=== PATIENT | male | born 1945 | race American Indian/Alaskan Native ===

== ENCOUNTER 2017-12-09 05:26 | Observation (INO) | payer MEDICARE ==
[2017-12-09 05:38] VITALS: BMI 28.0
--- NOTE | 2017-12-09 05:45 | ED PDOC ---
Arrival/HPI - General Historian: Patient - History of Present Illness Time/Duration: 1-3 hours Symptom Onset: Sudden Symptom Course: Unchanged - General Time Seen by Provider: 12/09/17 05:27 - History of Present Illness Narrative History of Present Illness (Text): 12/09/17 05:53 Patient is a 72 year old male with newly diagnosed hypertension and diabetes presenting to the ED with lip swelling. Patient states that he was just started on metformin and lisinopril on Sunday by his primary care doctor, Dr. Forte. He woke up in this morning and noticed that his upper and lower left lip was swollen. He states that he does not have trouble breathing, swallowing food, or drinking liquid. Patient denies tongue swelling, shortness of breath, fevers, chills, chest pain, abdominal pain, or urinary symptoms. (Aman uGnter) Past Medical History - Provider Review Nursing Documentation Reviewed: Yes - Travel History Have you recently traveled outside [place] w/in the past 3 mons?: No - Past History Past History: Non-Contributing Family/Social History - Physician Review Nursing Documentation Reviewed: Yes Family/Social History: No Known Family HX Smoking Status: Never Smoked Hx Alcohol Use: Yes Frequency of alcohol use: Socially Hx Substance Use: No Allergies/Home Meds Allergies/Adverse Reactions: Allergies No Known Allergies Allergy (Verified 12/09/17 05:37) Home Medications: Home Meds Medication Instructions Recorded Confirmed Lisinopril [Zestril] 10 mg PO DAILY 12/09/17 12/09/17 MetFORMIN [glucOPHAGE] 1,000 mg PO BID 12/09/17 12/09/17 Review of Systems - Physician Review All systems were reviewed & negative as marked: Yes - Review of Systems Constitutional: Normal. absent: Fevers, Night Sweats Eyes: Normal ENT: Other (Lip swelling). absent: Normal Respiratory: Normal. absent: SOB, Wheezing Cardiovascular: Normal. absent: Chest Pain Gastrointestinal: Normal. absent: Abdominal Pain, Constipation, Diarrhea, Nausea, Vomiting Genitourinary Male: Normal. absent: Dysuria, Frequency, Hematuria Musculoskeletal: Normal Skin: Normal. absent: Rash Neurological: Normal. absent: Headache, Dizziness Psychiatric: Normal. absent: Anxiety, Depression Physical Exam - Systems Exam Head: Present: Atraumatic, Normocephalic Pupils: Present: PERRL Extroacular Muscles: Present: EOMI Conjunctiva: Present: Normal Mouth: Present: Moist Mucous Membranes, Normal Tounge. No: Normal Lips ( Swelling of left upper and lower lip) Pharnyx: Present: Normal. No: ERYTHEMA, EXUDATE Respiratory/Chest: Present: Clear to Auscultation. No: Respiratory Distress, Accessory Muscle Use, Wheezes, Rales, Rhonchi Cardiovascular: Present: Regular Rate and Rhythm, Normal S1, S2. No: Murmurs, Rub, Gallop Abdomen: Present: Normal Bowel Sounds. No: Tenderness, Distention, Peritoneal Signs Upper Extremity: Present: Normal Inspection. No: Cyanosis, Edema Lower Extremity: Present: Normal Inspection. No: Edema Neurological: Present: GCS=15, CN II-XII Intact, Speech Normal Skin: Present: Warm, Dry, Normal Color. No: Rashes Psychiatric: Present: Alert, Oriented x 3, Normal Insight, Normal Concentration Vital Signs Temp Pulse Resp BP Pulse Ox 12/09/17 08:42 98.3 F 78 18 99 12/09/17 08:37 98.3 F 12/09/17 07:13 75 18 145/74 98 12/09/17 05:38 98.5 F 82 19 149/88 100 Medical Decision Making ED Course and Treatment: 12/09/17 05:28 Impression: Patient is a 72 year old male presenting with lip swelling. Differential Diagnosis included but are not limited to: - Angioedema - Allergic reaction Plan: -- Admit patient for observation -- Benadryl Progress Notes: 12/09/17 06:05 - Patient examined, patient agrees to be admitted for observation. 12/09/17 06:18 - Ordered Benadryl 12/09/17 06:50 - Swelling is better after given benadryl. (Aman Gunter) Case discussed with hospital medical assistant who will endorse patient to AM hospitalist. Admitted to Dr. Ponce. (Kassidy Jules) - Medication Orders Current Medication Orders: Albuterol/Ipratropium (Duoneb 3 Mg/0.5 Mg (3 Ml) Ud) 3 ml IH [id number] ROSE Last Admin: 12/09/17 13:35 Dose: 3 ml Amlodipine Besylate (Norvasc) 10 mg PO DAILY ROSE Famotidine (Pepcid) 40 mg PO HS ROSE Insulin Human Regular (Humulin R Low) 0 units SC ACHS [facility] PRN Reason: Protocol Last Admin: 12/09/17 16:53 Dose: 2 units MAR Blood Glucose Document 12/09/17 16:53 DLL (Rec: 12/09/17 16:55 DLL [id number]) Blood Glucose Finger Stick Blood Glucose (70-120) 228 Subcutaneous Administrations Document 12/09/17 16:53 DLL (Rec: 12/09/17 16:55 DLL [id number]) Injection Site MAR Injection Site Left Arm Charges for Administration # of Subcutaneous Administrations 1 Loratadine (Claritin) 10 mg PO DAILY [facility] Last Admin: 12/09/17 10:44 Dose: 10 mg Metformin HCl (Glucophage) 1,000 mg PO BID [facility] Last Admin: 12/09/17 17:17 Dose: Methylprednisolone (Solu-Medrol) 40 mg IVP Q12 [facility] Last Admin: 12/09/17 10:44 Dose: 40 mg IVP Administration Document 12/09/17 10:44 DLL (Rec: 12/09/17 10:45 DLL [id number]) Charges for Administration # of IVP Administrations 1 Montelukast Sodium (Singulair) 10 mg PO DAILY [facility] Last Admin: 12/09/17 10:44 Dose: 10 mg Discontinued Medications Diphenhydramine HCl (Benadryl) 25 mg PO STAT STA Stop: 12/09/17 06:12 Last Admin: 12/09/17 06:23 Dose: 25 mg Disposition/Present on Arrival - Present on Arrival Any Indicators Present on Arrival: No History of DVT/PE: No History of Uncontrolled Diabetes: No Urinary Catheter: No History of Decub. Ulcer: No - Disposition Have Diagnosis and Disposition been Completed?: Yes Disposition Time: 06:51 Patient Plan: Admission - Disposition Diagnosis: Angioedema Disposition: HOSPITALIZED Patient Problems: Current Active Problems Problem Status Onset Angioedema Acute Condition: STABLE
[2017-12-09] MEDS ORDERED: DiphenhydrAMINE 12.5 mg/5 ml LIQ UD (5 ml) PO STA (06:11)
[2017-12-09] MEDS ORDERED: MethylPREDNISolone 40 mg Vial IVP SCH (10:00)
[2017-12-09] MEDS: MethylPREDNISolone 40 mg Vial IVP SCH ×2 (10:44→21:25)
[2017-12-09] MEDS ORDERED: Insulin Lispro (humaLOG) MEDIUM Coverage SC SCH (11:30)
[2017-12-09] MEDS: Insulin Reg-LOW-Coverage SC SCH ×3 (11:54→22:11)
[2017-12-09] MEDS: Albuterol-Ipratrop 3 mg / 0.5 (3 ml) UD IH SCH ×2 (13:35→19:35)
[2017-12-09 23:16] VITALS: RESP 20
--- NOTE | 2017-12-10 05:14 | CON ---
Copied To: Ricky Amor MD Attending MD: Ricky Amor MD DATE: 12/09/2017 REASON FOR CONSULTATION: Leg swelling, mild shortness of breath, admitted with MICHELLE inhibitors reaction. HISTORY OF PRESENT ILLNESS: This is a 72-year-old gentleman with past medical history significant for hypertension, diabetes, who recently seen a new primary care physician, found to have a hypertension, was started on MICHELLE inhibitors, last dose was taken yesterday morning, comes in this morning with some shortness of breath, leg swelling, admitted with diagnosis of angioedema secondary to MICHELLE inhibitors, presently lying in the bed, already get Benadryl, Singulair, antihistamine and steroids and feel little bit better. Does not feel like closing of the throat or shortness of breath or chest pain at the present time. PAST MEDICAL HISTORY: Hypertension and diabetes. FAMILY HISTORY: No significant cardiopulmonary disease reported. SOCIAL HISTORY: Never smoked. Denies any alcohol abuse. ALLERGIES: I GUESS TO MICHELLE INHIBITORS. MEDICATIONS: He was on Zestril as an outpatient, placed on Claritin 10 mg daily, DuoNeb every 6 hours, metformin 1000 mg twice a day, Pepcid 40 mg at bedtime, Singulair 10 mg daily, Solu-Medrol 40 mg every 12 hours. REVIEW OF SYSTEMS: No headache, no rhinitis. Has a swollen especially upper lip and denying tongue swollen, mild short of breath. No chest pain. No nausea, vomiting, diarrhea, leg pain or leg swelling. PHYSICAL EXAMINATION: GENERAL: Lying in the bed in no acute distress. VITAL SIGNS: Temperature is 98, heart rate 64, respiratory rate is 18, blood pressure 155/88, pulse ox 98% on room air. HEENT: Moist mucous membrane. Crowded airway, swollen upper lips. No stridor. LUNGS: Have a fair airflow. No rhonchi. HEART: S1, S2. ABDOMEN: Soft, nontender. No organomegaly. EXTREMITIES: No edema. NEUROLOGIC: Awake, alert, follows simple commands. LABORATORY DATA: Shows glucose is 170. IMPRESSION AND PLAN: Angioedema secondary to lisinopril. Has hypertension and diabetes. Case discussed with Dr. Ponce. Spoke to nursing staff. We will continue close monitor. Continue antihistamine, leukotriene inhibitor, steroids. We will add Norvasc 10 mg daily to control the blood pressure. Gastric prophylaxis, deep venous thrombosis prophylaxis. Continue close monitoring in the fear of respiratory embarrassment Thank you and we will follow with you. Ricky Amor MD
[2017-12-10 07:20] LABS: HEMOGLOBIN 13.1 g/dL (14.0-18.0); MEAN CELL VOLUME 82.5 fl (80.0-105.0); MEAN CORPUSCULAR HGB CONC 33.9 g/dl (31.0-37.0); MEAN PLATELET VOLUME 10.4 fl (7.0-11.0); RBC 4.68 10^6/uL (3.5-6.1); RED CELL DISTRIBUTION WIDTH 12.7 % (11.5-14.5); WHITE BLOOD COUNT 4.8 10^3/ul (4.5-11.0)
[2017-12-10] MEDS: Albuterol-Ipratrop 3 mg / 0.5 (3 ml) UD IH SCH ×3 (07:38→19:47)
[2017-12-10 07:45] LABS: CALCIUM 9.5 mg/dL (8.4-10.5)
--- NOTE | 2017-12-10 08:01 | HP ---
Copied To: Irene Ponce MD Attending MD: Irene Ponce MD The patient is a 72-year-old male. CHIEF COMPLAINT: Lip swelling. HISTORY OF PRESENT ILLNESS: Mr. Keith Rodriguez is a 72-year-old male with newly diagnosed hypertension and diabetes. He went to the Emergency Room Department with swelling of the lips. Patient states that he was just started on metformin and lisinopril on Sunday by his primary care doctor, He woke up this morning and noticed that his upper and lower lips were swollen. He states that he does not have trouble with breathing, swallowing food or drinking liquid. no Chest pain . Patient denies tongue swelling, shortness of breath, fever, chills. No nausea or vomiting. No hematuria or hematochezia. PAST MEDICAL HISTORY: Hypertension, diabetes mellitus. FAMILY HISTORY: Father and mother noncontributory. SOCIAL HISTORY: No smoking. Never alcohol yet. Substance abuse, never. ALLERGIES: PATIENT IS NOT ALLERGIC WITH ANY MEDICATIONS. HOME MEDICATIONS: Zestril, metformin. REVIEW OF SYSTEMS: The patient was seen in the emergency room. was sitting on the bedside also. Still having the swollen lips, was sleepy after Benadryl. No wheezing. No chest pain. No headache. No dizziness. No fever. No chills. No hematuria. No hematochezia. PHYSICAL EXAMINATION: VITAL SIGNS: Temperature 98.3, pulse 78, respiratory rate 18, blood pressure 145/74, pulse oximetry 98%. HEENT: Head: Normocephalic, atraumatic. Eyes: PERRLA. Extraocular muscles are intact. Conjunctivae are clear. Nose is patent. Mucous membranes moist. Mouth moist. Swelling of the upper lip and lower lip. NECK: Supple. CHEST: Clear to auscultation. HEART: S1, S2 positive. LUNGS: Clear to auscultation. ABDOMEN: Soft. Bowel sounds present. No organomegaly. EXTREMITIES: No edema. No cyanosis. NEUROLOGIC: The patient is awake and alert. Moving all 4 extremities. No focal deficit. LABORATORY DATA: Glucose 170, 228. ASSESSMENT AND PLAN: Mr. Keith Rodriguez is a 72-year-old male came with angioedema, history of hypertension, diabetes mellitus, Benadryl given in the emergency room and I started the patient on Claritin, DuoNeb, metformin, insulin coverage, amlodipine, famotidine, Singulair, methylprednisolone. Patient passed the swelling test then food was given. Pulmonary consult called to make sure that patient will not get shortness of breath. Repeat lab. We will follow up. Irene Ponce MD MTDD
[2017-12-10 08:02] LABS: TOTAL IRON BINDING CAPACITY 352 ug/dL (261-462)
[2017-12-10] MEDS: Insulin Reg-LOW-Coverage SC SCH ×3 (08:30→17:08)
[2017-12-10 08:38] LABS: IRON 108 ug/dL (45-180)
[2017-12-10] MEDS: MethylPREDNISolone 40 mg Vial IVP SCH (09:51)
[2017-12-10] MEDS ORDERED: MethylPREDNISolone 40 mg Vial IVP SCH ×2 (10:00→22:00)
[2017-12-10 10:51] LABS: % IRON SATURATION 31 % (20-55)
[2017-12-10 12:01] LABS: FOLATE 8.8 ng/mL
--- NOTE | 2017-12-10 21:32 | PN ---
Copied To: Ricky Amor MD Attending MD: Ricky Amor MD DATE: 12/10/2017 PULMONARY PROGRESS NOTE REFERRING PHYSICIAN: Irene Ponce MD. SUBJECTIVE: He is sitting side of the bed. Family is at bedside. Night was unremarkable. Feels better. Decreased leg swelling. No shortness of breath today. No chest pain. No nausea. No vomiting, diarrhea, leg pain or leg swelling. OBJECTIVE: GENERAL: In no acute distress. VITAL SIGNS: Temperature is 98, heart rate is 86, respiratory rate is 20, blood pressure 180/80, pulse ox 99% room air. HEENT: Moist mucous membrane. Crowded airway. Mallampati score is 4. NECK: Supple. No JVD. Leg swelling is better. LUNGS: Have fair airflow with rhonchi. HEART: S1 and S2. ABDOMEN: Soft, nontender, no organomegaly. EXTREMITIES: No edema. NEUROLOGIC: Awake and alert, follows simple command. MEDICATIONS He is on Claritin 10 mg daily, DuoNeb every 6 hours, metformin 1000 mg twice a day, insulin coverage, hydrochlorothiazide 25 mg daily, Norvasc 10 mg daily, Pepcid 40 mg daily, Singulair 10 mg daily, Solu-Medrol 20 mg every 12 hours. LABORATORY DATA: Shows hemoglobin 13.1, hematocrit 38.6, WBC 4.8, platelet count is 213. Blood sugar 226. Iron 108, TIBC 352. TSH 0.45. Sodium 138, potassium 5.5, chloride 104, bicarbonate 21, BUN 38, creatinine 1.6, glucose 217. LDH 140. Folate 8.8. Vitamin B12 444. IMPRESSION AND PLAN: Resolving angioedema, probably secondary to MICHELLE inhibitors; hypertension; diabetes; mild renal insufficiency. Case discussed Dr. Ponce. Spoke to the patient and the patient's family at bedside. All the questions answered. We will place him on IV fluid half-normal saline 70 mL per hour. Cardiology consult was called. Gastric prophylaxis, deep vein thrombosis prophylaxis. Thank you and we will follow with you. Ricky Amor MD [facility] # [id number]
--- NOTE | 2017-12-10 22:57 | PN ---
Copied To: Irene Ponce MD Attending MD: Irene Ponce MD DATE: 12/10/2017 SUBJECTIVE: Patient is a 72-year-old male. Patient is seen and examined on the bedside, looking comfortable. No nausea, vomiting, or diarrhea. No hematuria or hematochezia. No swelling of the leg. No chest pain. No palpitation. Swelling of the lips was getting better. No headache. No dizziness. No fever. No chills. PHYSICAL EXAMINATION: VITAL SIGNS: Temperature 97.5, pulse 86, blood pressure 180/83, respiratory rate 20. HEENT: Head: Normocephalic, atraumatic. Eyes: PERRLA. Extraocular muscles are intact. Conjunctivae are clear. Nose is patent. Mucous membranes moist. NECK: Supple. No carotid bruit. No JVD or thyromegaly. CHEST: Bilaterally symmetrical. HEART: S1 and S2 positive. LUNGS: Clear to auscultation. ABDOMEN: Soft. Bowel sounds present. No organomegaly. EXTREMITIES: No edema. No cyanosis. NEUROLOGIC: Patient is awake and alert. Moving all 4 extremities. No focal deficit. MEDICATIONS: Claritin, albuterol, insulin, hydrochlorothiazide, Lopressor, amlodipine, Pepcid, Singulair. LABORATORY DATA: White blood cells 4.8, hemoglobin 13.1, hematocrit 38.6, platelets 213. Sodium 138, potassium 5.5 and repeat is 4.7, BUN 38, creatinine 1.2, glucose 230. Hemoglobin A1c is 10.5. LDL 140. ASSESSMENT AND PLAN: Mr. Keith Rodriguez is a 72-year-old male with anemia; hyperkalemia, replaced, it is normal; renal insufficiency; uncontrolled diabetes mellitus, hemoglobin A1c is 10.5; hypercholesterolemia; hypothyroidism; came with angioedema, discontinue enalapril. Discussion done with Dr. Amor and patient's nursing staff. Continue antihistamine and leukotriene inhibitors because patient's blood pressure going up, blood sugar is uncontrolled, discussion done with Dr. Amor and stop steroids. Continue Norvasc. Today, I added hydrochlorothiazide, but still blood pressure was high. Now, I added metoprolol tartrate 25 twice a day, one dose now. Cardiology consult called with the patient. Gastrointestinal and deep venous thrombosis prophylaxes. Repeat labs. We will follow up. Irene Ponce MD ISIA[facility]
[2017-12-11] MEDS: Insulin Reg-LOW-Coverage SC SCH ×3 (01:07→11:51)
[2017-12-11] MEDS: Albuterol-Ipratrop 3 mg / 0.5 (3 ml) UD IH SCH ×4 (02:00→13:14)
[2017-12-11 06:45] VITALS: TEMP 97.6; O2SAT 98
[2017-12-11 07:27] LABS: HEMOGLOBIN 12.2 g/dL (14.0-18.0); MEAN CELL VOLUME 82.6 fl (80.0-105.0); MEAN CORPUSCULAR HEMOGLOBIN 27.9 pg (25.0-35.0); MEAN CORPUSCULAR HGB CONC 33.7 g/dl (31.0-37.0); MEAN PLATELET VOLUME 9.9 fl (7.0-11.0); RBC 4.38 10^6/uL (3.5-6.1); RED CELL DISTRIBUTION WIDTH 12.9 % (11.5-14.5); WHITE BLOOD COUNT 10.1 10^3/ul (4.5-11.0)
[2017-12-11 07:48] LABS: ALB/GLOB RATIO 1.2 (1.1-1.8); ALBUMIN 3.9 g/dL (3.0-4.8); CALCIUM 9.5 mg/dL (8.4-10.5)
[2017-12-11] MEDS ORDERED: Sod Polystyrene Sulf 15 gm/60 ml Susp PO ONE (10:30)
[2017-12-11] MEDS ORDERED: GlipiZIDE 10 mg SR Tab PO SCH (15:00)
[2017-12-11 16:05] VITALS: BP 153/88; PULSE 84
--- NOTE | 2017-12-11 19:10 | CON ---
Copied To: Ricky Huitron MD Attending MD: Ricky Huitron MD DATE: 12/11/2017 REASON FOR CONSULTATION: Followup fluctuating heart rate, uncontrolled hypertension, admitted with possible angioedema. BRIEF CLINICAL HISTORY: This is a 72-year-old male with past medical history significant for diabetes, hypertension, mild alcohol abuse, who recently had change in medication. According to patient, lives in [place] and he was prescribed the new medication, Lipitor in [place], then the patient at 01:00 a.m. woke up, looking his face swelling, came to the Emergency Room with swelling lip. Not sure, which medication gave this, but he took hydrochlorothiazide, Lipitor, and some blood pressure medication unknown, possibly lisinopril. PAST MEDICAL HISTORY: Significant for diabetes, hypertension, hyperlipidemia. SOCIAL HISTORY: Never smoking. Alcohol uses every now and then the hard liquor is scotch in moderate amount. ALLERGIES: NO KNOWN DRUG ALLERGY TO ANY MEDICATION PRIOR TO THIS EVENT. CURRENT MEDICATIONS: At home was taking lisinopril 10 mg daily, metformin, and hydrochlorothiazide. REVIEW OF SYSTEMS: As per HPI. 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 Denies any chest pain, shortness of breath, or any palpitation. PHYSICAL EXAMINATION: VITAL SIGNS: Temperature afebrile, heart rate 78, blood pressure 145/74. HEENT: PERRLA. Extraocular muscles intact. NECK: Supple. No carotid bruits or thyromegaly. CHEST: Clear to auscultation. HEART: S1 and S2 regular. ABDOMEN: Soft. EXTREMITIES: Clubbing and cyanosis, negative. LABORATORY DATA: Blood workup as follows: WBC 10, hemoglobin 12.2, hematocrit 36.2, platelet count 226. Chemistry shows sodium 135, potassium 5.5, chloride 103, carbon dioxide 20, anion gap of 18, BUN 42, creatinine 1.5. EKG not available in the chart nor the system. IMPRESSION: A 72-year-old male with past medical history significant for hypertension, diabetes, very noncompliance with medication, admitted with face swelling, possibly secondary to lisinopril. Patient states that he took metformin, lisinopril, Lipitor, and hydrochlorothiazide. Cardiology consult was called for uncontrolled hypertension and fluctuating heart rate. We will advise MICHELLE inhibitors. I started low dose beta-clemente. Get echo to assess left ventricular function, lipid profile, TSH, and hemoglobin A1c. Already C1 esterase inhibitors routine was ordered and we will follow with you. Monitor closely. We will get EKG. Further recommendation will be made after the EKG and echo and responses of blood pressure with metoprolol, hydrochlorothiazide, amlodipine. We will follow with you. Thank you, Dr. Ponce, for providing us the opportunity in taking care of the patient, Keith Rodriguez. Ricky Huitron MD
--- NOTE | 2017-12-11 21:33 | CARD ---
APPROVED REPORT Date of service: 12/11/2017 EKG Measurement Heart [id number] <Conclusion> Normal sinus rhythm Minimal voltage criteria for LVH, may be normal variant ST & T wave abnormality, consider inferior ischemia Abnormal ECG
--- NOTE | 2017-12-11 22:47 | PN ---
Copied To: Ricky Amor MD Attending MD: Ricky Amor MD DATE: 12/11/2017 PULMONARY PROGRESS NOTE REFERRING PHYSICIAN: Irene Ponce MD SUBJECTIVE: He is getting ready to go home. Feels better. No headache, no rhinitis. No nausea, no vomiting, diarrhea, leg pain or leg swelling. No shortness of breath. OBJECTIVE: GENERAL: In no acute distress. VITAL SIGNS: Temperature is 98, heart rate 84, respiratory rate is 20, blood pressure 153/88, pulse of 98% on room air. HEENT: Moist mucous membrane. Crowded airway. Mallampati score is 4. NECK: Supple. No JVD. LUNGS: Have a fair airflow with rhonchi. HEART: S1 and S2. ABDOMEN: Soft, nontender, no organomegaly. EXTREMITIES: No edema. NEUROLOGIC: Awake and alert. Follows simple command. MEDICATIONS: He is on Claritin 10 mg daily, DuoNeb every 6 hour, glipizide XL 10 mg daily, hydrochlorothiazide 25 mg daily, metoprolol tartrate 25 mg twice a day, Norvasc 10 mg daily, Pepcid 40 mg daily, Singulair 10 mg daily. LABORATARY DATA: Reviewed, noted hemoglobin 12.2, hematocrit 36.2, WBC 10.1, platelet is 226. Sodium 135, potassium 5.2, chloride 103, bicarbonate 20, BUN 42, creatinine 1.5, glucose 148, calcium 9.5, AST 37, ALT 39, alk phos is 76. IMPRESSION AND PLAN: Status post angioedema, probably secondary to Angiotensin converting enzyme inhibitors, hypertension, diabetes, mild renal insufficiency, may have a sleep apnea syndrome. The patient being discharged home on calcium channel clemente, continue on glipizide. We will follow with Dr. Ponce as outpatient. May benefit from attended sleep study to assure there is no sleep apnea component to his hypertension. Thank you and we will follow with you. Ricky Amor MD
--- NOTE | 2017-12-12 18:28 | CARD ---
APPROVED REPORT Date of service: 12/11/2017 EXAM: Two-dimensional and M-mode echocardiogram with Doppler and color Doppler. INDICATION Hypertension/HCVD 2D DIMENSIONS Left Atrium (2D)3.1 (1.6-4.0cm)IVSd1.1 (0.7-1.1cm) LVDd4.5 (3.9-5.9cm)PWd1.1 (0.7-1.1cm) LVDs2.9 (2.5-4.0cm)FS (%) 35.5 % LVEF (%)65.1 (>50%) M-Mode DIMENSIONS Aortic Root2.80 (2.2-3.7cm)Aortic Cusp Exc.1.90 (1.5-2.0cm) Aortic Valve AoV Peak Mkcyesuz406.0cm/Marisabel Peak GR.9mmHg Mitral Valve MV E Vbvjkibn41.6cm/sMV A Cnpbluuu57.8cm/sE/A ratio0.8 TDI E/Lateral E'0.0E/Medial E'0.0 Tricuspid Valve TR Peak [id number]/sRAP [id number] Peak Gr.19mmHg [id number] LEFT VENTRICLE The left ventricle is normal size. The left ventricle is normal size. There is normal left ventricular wall thickness. The left ventricular function is normal.EF-65% There is normal LV segmental wall motion. Transmitral Doppler flow pattern is Grade III-reversible restrictive diastolic dysfunction. No left ventricle thrombus noted on this study. There is no ventricular septal defect visualized. There is no left ventricular aneurysm. There is no mass noted in the left ventricle. RIGHT VENTRICLE The right ventricle is normal size. There is normal right ventricular wall thickness. The right ventricular systolic function is normal. ATRIA The left atrium size is normal. The right atrium size is normal. The interatrial septum is intact with no evidence for an atrial septal defect. AORTIC VALVE The aortic valve is thickened but opens well. There is trace aortic regurgitation. There is no aortic valvular stenosis. There is no aortic valvular vegetation. MITRAL VALVE The mitral valve is thickened but opens well. Mitral regurgitation is trace. There is no mitral valve stenosis. There is no evidence of mitral valve prolapse. TRICUSPID VALVE The tricuspid valve is normal in structure. There is trace to mild tricuspid regurgitation.RVSP_29 mmof Hg. There is no tricuspid valve stenosis. There is no tricuspid valve prolapse or vegetation. PULMONIC VALVE The pulmonary valve is normal in structure. There is no pulmonic valvular regurgitation. There is no pulmonic valvular stenosis. GREAT VESSELS The aortic root is normal in size. The ascending aorta is normal in size. The pulmonary artery is normal. The IVC is normal in size and collapses >50% with inspiration. PERICARDIAL EFFUSION There is no pleural effusion. There is no pericardial effusion. <Conclusion> Normal chamber Size. EF-65% Trace MR/AR Trace to Mild TR, RVSP-29 mmof hg,.
== END 2017-12-11 17:56 | disposition home or self-care (01) ==
LOC: ED 05:26 → ERH 07:18 → 5RNO 08:49
PROVIDERS: ADMIT Internal Medicine; ATTEND Internal Medicine
DX: T78.3XXA Angioneurotic edema, initial encounter (principal); T46.4X5A Adverse effect of angiotensin-converting-enzyme inhibitors, initial encounter; E03.9 Hypothyroidism, unspecified; E78.00 Pure hypercholesterolemia, unspecified; E78.5 Hyperlipidemia, unspecified; E11.9 Type 2 diabetes mellitus without complications; E87.5 Hyperkalemia; D64.9 Anemia, unspecified; I10 Essential (primary) hypertension; N28.9 Disorder of kidney and ureter, unspecified; Z91.14 Patient's other noncompliance with medication regimen; F10.10 Alcohol abuse, uncomplicated
CPT/HCPCS: 36415; 80048; 80053; 80061; 82607; 82746; 82948; 83036; 83540; 83550; 84132; 84443; 85027; 86160; 86161; 93005; 93306; 94640; 94760; 99285; G0378; J2920